=== PATIENT | male | born 1950 | race Caucasian/White ===

== ENCOUNTER 2020-05-05 16:38 | Outpatient (RCR) | payer BC, SELFPAY ==
--- NOTE | 2020-05-06 07:19 | HP.PTEVAL_ITS ---
Patient's Visit Information ELIA SHAH is a 69 year old M referred to Physical Therapy by Dr. Aury Conley MD with a diagnosis of BACK AND LEG PAIN. Date of Evaluation: 05/05/20 Physical Therapist: Tor Gee, PT, Cert MDT, OCS - Visit Plan Frequency: 2x /Week Duration: 4 Weeks Plan: CONSIDERATION DJD BILATERAL KNEE. PT INTERVENTIONS POSTURAL EX'S,DLS ABD/BACK ,MODALTIES ,BLE STRENGGTHENING - Subjective This 69 y/o male presents to physical therapy with back and leg pain. Patient has back and leg pain many years aling with knee pain -DJD. Patient work demands could be aggraveting factors. Patient has had prior injections in past in [place]. Injjections help temporarly. Location pain mid-low suellen to ankle bilateral. Knee is bad enough with TKR. Symptoms desribed as ache/kniving throbbing.Patient aggraveting factors walking extended uses cane,standing,bending ,lifting. Alleviating rest,injections pain MEDS percocet.Denies parathesia/tingling, Bowel/bladder. Coughing/seezing-. Sleeping good. Patient symptoms affects ADLS' and houseworks . Patient pain affects QOL. SOCIAL: . VOCATION: retired - Pain Bilateral Back Pain Intensity (Out of 10): 2 Pain Intensity Range: 10 Bilateral Knee Pain Intensity (Out of 10): 5 Pain Intensity Range: 10 - Objective POSTURE: mild foward posture ,varus deformity. GAIT: reciprocal pattern but antalgic. NEURO: denies parathesia/tingling ,reflexes L3-4,L4-5,L5-S1. SYMMTIES: align. PALAPTION: unremarkable. FLEXABLITY: hams mild tight. LUMBAR ROM: flexion min loss ,extension min loss,side glides min loss. MMT: QUADS/HAMS 4/5,ANKLE 4/5,hip flexion 4-/5. AROM: supine knee flexion 0--120 degrres - Special Tests L/S Slump test left side: Negative L/S Slump test right side: Negative L/S Left Straight Leg Raise: Negative - Goals Goal 1:: Patient to be I with HEP. Goal Time Frame: 4-6 Weeks Goal 2:: Patient improve posture/body mechanics For ADL's Goal Time Frame: 4-6 Weeks Goal 3:: Patient improve back owestry score by 5 points or> to improve function. Goal Time Frame: 4-6 Weeks Goal 4:: Patient to decrease pain by 50% or > to improve QOL Goal Time Frame: 4-6 Weeks Goal 5:: Patient to be d/c to prophalxis Goal Time Frame: 2-4 Weeks - Rehabilitation Potential Physical Therapy Diagnosis: This patient has had chronic pain for pain years roel LBP and has h/o DJD in knees with decrease ROM for function of recovery,decrease strength thus benifit from skilled PT. Rehabilitation Potential: Good - Anticipated Interventions Patient/Client Instruction: Educate patient on: Condition, Plan of Care For the Purpose of:: To decrease pain, To increase ROM, To improve muscle performance and motor function, To improve ability to perform ADL's, To increase tolerance to activity/condition/position, To improve ability of physical actions for home/community/work/leisure, To improve health of tissue, To decrease soft tissue restriction, To increase flexibility/ROM, To reduce risk of recurrence, To improve ability to perform tasks related to life management Therapeutic Exercise to Include: Strength training, Postural training, Flexibilty training, Dynamic Lumbar Stabilization Comment: BLE For the Purpose of:: To decrease pain, To increase ROM, To improve muscle performance and motor function, To increase tolerance to activity/condition/position, To improve ability of physical actions for home/community/work/leisure, To increase flexibility/ROM, To reduce risk of recurrence, To improve ability to perform tasks related to life management TENS: Yes IF ES: Yes Cryotherapy (ice pack, ice massage): Yes Thermo therapy (hot pack): Yes Ultrasound (thermal/non thermal): Yes For the Purpose of:: To decrease pain, To improve nutrient delivery to tissue, To increase oxygenation perfusion, To improve health of tissue, To decrease soft tissue restriction Thank you for the opportunity to evaluate your patient. For Medicare and Medicare HMO plans, please review the plan of care and approve it. It will need to be FAXED BACK to us at [phone] for Medicare purposes. For Medicare only, by signing this I certify the plan of care. Please let me know if there are questions or concerns regarding this plan of care. Physician Signature: Date:
--- NOTE | 2020-09-15 17:12 | HP.PT.NRP ---
ELIA SHAH JrYnaet was seen in my office for initial evaluation on 05/05/20. The following Plan of Care was established for this patient: Initial Frequency: 2x /Week Initial Duration: 4 Weeks Patient/Client Instruction: Educate patient on: Condition, Plan of Care For the Purpose of:: To decrease pain, To increase ROM, To improve muscle performance and motor function, To improve ability to perform ADL's, To increase tolerance to activity/condition/position, To improve ability of physical actions for home/community/work/leisure, To improve health of tissue, To decrease soft tissue restriction, To increase flexibility/ROM, To reduce risk of recurrence, To improve ability to perform tasks related to life management Therapeutic Exercise to Include: Strength training, Postural training, Flexibilty training, Dynamic Lumbar Stabilization For the Purpose of:: To decrease pain, To increase ROM, To improve muscle performance and motor function, To increase tolerance to activity/condition/position, To improve ability of physical actions for home/community/work/leisure, To increase flexibility/ROM, To reduce risk of recurrence, To improve ability to perform tasks related to life management TENS: Yes IF ES: Yes Cryotherapy (ice pack, ice massage): Yes Thermo therapy (hot pack): Yes Ultrasound (thermal/non thermal): Yes For the Purpose of:: To decrease pain, To improve nutrient delivery to tissue, To increase oxygenation perfusion, To improve health of tissue, To decrease soft tissue restriction This patient was last seen in our office . Pertinent comments regarding their Physical therapy will appear below: Patient seen for Intial PT evaluation for HEP thus nis d/c At this point I will be discontinuing this patient from physical therapy. I would be happy to see this patient again in the future if found appropriate by the physician. Thank you! Tor Gee, PT, Cert MDT, OCS
== END 2020-05-05 19:00 | disposition home or self-care (01) ==
LOC: PT 16:38
PROVIDERS: Referring Provider Anesthesiology Pain Medicine; Visit Provider Anesthesiology Pain Medicine
DX: M54.9 Dorsalgia, unspecified (principal); M79.606 Pain in leg, unspecified
CPT/HCPCS: 97110; 97162

== ENCOUNTER → 2020-05-06 11:07 | Outpatient (CLI) | payer MEDICARE, SELFPAY ==
--- NOTE | 2020-05-06 11:13 | RAD_ITS ---
STUDY: X-RAY - LEFT KNEE REASON FOR EXAM: Male, 69 years old. CHRONIC PAIN, NO INJURY TECHNIQUE: 4 view(s) of the knee. COMPARISON: None. FINDINGS: Normal visualized distal femur. Normal visualized proximal tibia and fibula. Normal proximal tibiofibular articulation. There is severe degenerative arthrosis of the medial femorotibial compartment with severe joint space narrowing. Normal lateral femorotibial compartment. There is moderate degenerative arthrosis of the patellofemoral articulation. The soft tissue structures are unremarkable. RAD/Knee 4 or More Views IMPRESSION: Degenerative arthrosis without effusion. Electronically Signed: Stone Blair MD at 11:42 EDT , Service support ,
--- NOTE | 2020-05-06 11:13 | RAD_ITS ---
STUDY: X-RAY - LUMBAR SPINE REASON FOR EXAM: Male, 69 years old. CHRONIC PAIN, NO INJURY TECHNIQUE: 3 view(s) of the lumbar spine were obtained. COMPARISON: None FINDINGS: Normal lumbar lordosis. There is no substantial scoliosis. There is a normal alignment of the vertebrae. There is multilevel endplate spondylosis of the lumbar vertebrae. There is multi-level degenerative disc disease with multi-level disc space narrowing, most pronounced at L5/S1. There is no demonstrated fracture. The soft tissue structures are unremarkable. RAD/Lumbar Spine 2 or 3 Views IMPRESSION: Degenerative changes of the spine, as detailed above. Electronically Signed: Stone Blair MD at 11:41 EDT , Service support ,
--- NOTE | 2020-05-06 11:13 | RAD_ITS ---
STUDY: X-RAY - RIGHT KNEE REASON FOR EXAM: Male, 69 years old. Pain and stiffness TECHNIQUE: 4 view(s) of the knee. COMPARISON: None. FINDINGS: Normal visualized distal femur. Normal visualized proximal tibia and fibula. Normal proximal tibiofibular articulation. There is severe degenerative arthrosis of the medial femorotibial compartment with severe joint space narrowing. Normal lateral femorotibial compartment. There is moderate degenerative arthrosis of the patellofemoral articulation. There is a soft tissue prominence in the suprapatellar region suggesting a small volume joint effusion. The soft tissue structures are unremarkable. RAD/Knee 4 or More Views IMPRESSION: Degenerative arthrosis with small suprapatellar effusion.. Electronically Signed: Stone Blair MD at 11:42 EDT , Service support ,
== END ==
PROVIDERS: PCP Family Medicine; Referring Provider Anesthesiology Pain Medicine; Visit Provider Anesthesiology Pain Medicine
DX: M54.9 Dorsalgia, unspecified (principal); M17.0 Bilateral primary osteoarthritis of knee
CPT/HCPCS: 72100; 73564

== ENCOUNTER → 2020-07-15 12:04 | Outpatient (CLI) | payer MEDICARE, SELFPAY ==
[2020-07-15 12:56] LABS: Amphetamine Urine VISTA NEGATIVE (<1000 ng/mL); Barbiturate Urine VISTA NEGATIVE (< 200 ng/mL); Benzodiazepine Urine VISTA NEGATIVE (< 200 ng/mL); Cocaine Urine VISTA NEGATIVE (< 300 ng/mL); Ecstacy Urine VISTA NEGATIVE (< 500 ng/mL); Methadone Urine VISTA NEGATIVE (< 300 ng/mL); PCP Urine VISTA NEGATIVE (< 25 ng/mL); THC Urine VISTA NEGATIVE (< 50 ng/mL); Vista UDS pH Range 5
== END ==
PROVIDERS: PCP Family Medicine; Referring Provider Anesthesiology Pain Medicine; Visit Provider Anesthesiology Pain Medicine
DX: F11.20 Opioid dependence, uncomplicated (principal)
CPT/HCPCS: 80307

== ENCOUNTER → 2020-12-15 09:58 | Outpatient (CLI) | payer MEDICARE, SELFPAY ==
[2020-12-15 10:48] LABS: Amphetamine Urine VISTA NEGATIVE (<1000 ng/mL); Barbiturate Urine VISTA NEGATIVE (< 200 ng/mL); Benzodiazepine Urine VISTA NEGATIVE (< 200 ng/mL); Cocaine Urine VISTA NEGATIVE (< 300 ng/mL); Ecstacy Urine VISTA NEGATIVE (< 500 ng/mL); Methadone Urine VISTA NEGATIVE (< 300 ng/mL); PCP Urine VISTA NEGATIVE (< 25 ng/mL); THC Urine VISTA NEGATIVE (< 50 ng/mL); Vista UDS pH Range 5
== END ==
PROVIDERS: PCP Family Medicine; Referring Provider Anesthesiology Pain Medicine; Visit Provider Anesthesiology Pain Medicine
DX: F11.20 Opioid dependence, uncomplicated (principal)
CPT/HCPCS: 80307

== ENCOUNTER 2021-01-22 07:11 | Outpatient (RCR) | payer MEDICARE, SELFPAY ==
[2021-01-22] MEDS: COVID-19 VACC, MRNA(PFIZER)/PF 30 MCG/0.3 ML SYRINGE IM (15:42)
[2021-02-26] MEDS: COVID-19 VACC, MRNA(PFIZER)/PF 30 MCG/0.3 ML SYRINGE IM (10:29)
== END 2021-04-21 23:59 ==
LOC: IMMUN 07:11
PROVIDERS: PCP Family Medicine; Referring Provider Family Medicine; Visit Provider Family Medicine
DX: Z23 Encounter for immunization (principal)
CPT/HCPCS: 0001A; 0002A; 91300